=== PATIENT | female | born 1985 | race Hispanic/Latino ===

== ENCOUNTER 2019-11-10 14:27 | Day surgery (SDC) | payer BC ==
[2019-11-10] MEDS ORDERED: Metoclopramide HCl 10 MG/2 ML VIAL ONE (15:19)
[2019-11-10] MEDS ORDERED: Rocuronium Bromide 10 MG/ML (10ML VIAL) ONE (15:19)
[2019-11-10] MEDS ORDERED: Lidocaine 1% PF 5 ML VIAL ONE (15:19)
[2019-11-10] MEDS ORDERED: Glycopyrrolate 0.2 MG/ML 5 ML SYRINGE ONE (15:19)
[2019-11-10] MEDS ORDERED: PROPOFOL 200 MG/20 ML VIAL ONE (15:19)
[2019-11-10] MEDS ORDERED: Ondansetron PF 4 MG/2 ML Vial ONE (15:19)
--- NOTE | 2019-11-10 16:06 | CON ---
DATE OF CONSULTATION: 11/10/2019 CHIEF COMPLAINT: Pill stuck in my esophagus. HISTORY OF PRESENT ILLNESS: Ms. Jaramillo is a 34-year-old woman, who ate breakfast this morning and then around 9:30 this morning, took an Gabrielle-D tablet that lodged in her upper substernal level of her esophagus. She has had sinus congestion for the last week, so she took the pill this morning. She has had intermittent trouble swallowing pills in the past, but has never had a get stuck like this. She has some occasional difficulty with breads and meats. She reports endoscopy was done many years ago for some gastritis. She has had no nausea or vomiting other than currently she is unable to tolerate her secretions and spitting her saliva up into a bag at the bedside because she is unable to swallow. She has had some soreness in her abdominal muscles due to the repeated retching to get the saliva. She has had no diarrhea, constipation, or blood in the stool. No weight changes prior to this. PAST MEDICAL HISTORY: Otherwise negative. PAST SURGICAL HISTORY: x2. She has a 1-year-old and a 4-year-old. FAMILY HISTORY: Negative for GI malignancy. SOCIAL HISTORY: No alcohol, tobacco, or drugs. ALLERGIES: BACTRIM. MEDICATIONS: Prior to admission, none. REVIEW OF SYSTEMS: Negative x10 systems reviewed, except as stated in the history of present illness. PHYSICAL EXAMINATION: GENERAL: She is in no acute distress. Alert and oriented x3. LUNGS: Clear to auscultation bilaterally. HEART: Regular rate and rhythm without murmur. ABDOMEN: Soft, nontender, and nondistended. Bowel sounds are present. EXTREMITIES: No lower extremity edema. IMPRESSION: Esophageal foreign body. She has an Gabrielle D tablets stuck in the upper substernal level. She has had intermittent dysphagia for years, which has been mild previously. She could have an esophageal stricture from reflux or eosinophilic esophagitis versus other source. RECOMMENDATIONS: EGD today to remove the to remove the foreign body. Job ID: [id number]
--- NOTE | 2019-11-10 16:35 | OP ---
DATE OF PROCEDURE: 11/10/2019 PROCEDURES PERFORMED: 1. Esophagogastroduodenoscopy with biopsy. 2. Esophageal foreign body removal. 3. Esophageal balloon dilation. PREOPERATIVE DIAGNOSIS: Esophageal foreign body. DESCRIPTION OF PROCEDURE: Informed consent was obtained from the patient. She was sedated with general anesthesia. The endoscope was advanced easily to the second portion of the duodenum and retroflexion was performed in the stomach. The esophagus had a pill lodged in the mid esophagus at 25 cm. I initially opened a snare to place around, but the pill was still hard and the snare slipped over the top of it. I then used a rat-tooth forceps to grasp the pill and removed it through the patient's mouth. The esophagus was strictured and too tight to pass the endoscope through. There were concentric rings and midesophageal stricture as well as vertical furrows. Biopsies were obtained to evaluate for eosinophilic esophagitis. The esophagus was dilated to 12 mm with a balloon dilator. There were appropriate significant tears, measuring several centimeters in length, associated with balloon dilation. The endoscope could be passed through the esophagus only after dilation was achieved. The GE junction was otherwise unremarkable. There was some retained food in the fundus of the stomach. The stomach mucosa was normal including retroflexed views. The pylorus and first and second portions of the duodenum were normal. IMPRESSION: 1. Esophageal foreign body with a pill stuck at 25 cm, removed with a rat-tooth forceps. 2. Multiple concentric rings and stricture through the esophagus with vertical furrows, consistent with the eosinophilic esophagitis. The esophageal strictures were dilated to 12 mm with a balloon dilator. 3. Otherwise normal esophagogastroduodenoscopy. RECOMMENDATIONS: 1. Await histopathology. 2. Proton pump inhibitor daily. We will start omeprazole over the counter. The capsules could be opened and mixed with applesauce to be taken due to the stricture. 3. Soft foods and kasia each bite with water. 4. Follow up in GI Clinic. If she is confirmed to have the eosinophilic esophagitis, we can treat with swallowed steroid, discuss potential for food allergy testing and potential elimination diets. Job ID: [id number]
== END 2019-11-10 17:03 | disposition home or self-care (01) ==
LOC: ERS 14:27
PROVIDERS: ATTEND Internal Medicine Gastroenterology
PROC: 0D758ZZ Dilation of Esophagus, Via Natural or Artificial Opening Endoscopic (ICD-10-PCS; principal; 2019-11-10)
PROC: 0DB58ZX Excision of Esophagus, Via Natural or Artificial Opening Endoscopic, Diagnostic (ICD-10-PCS; principal; 2019-11-10)
PROC: 0DC28ZZ Extirpation of Matter from Middle Esophagus, Via Natural or Artificial Opening Endoscopic (ICD-10-PCS; principal; 2019-11-10)
DX: K22.2 Esophageal obstruction (principal); T18.198A Other foreign object in esophagus causing other injury, initial encounter; K20.0 Eosinophilic esophagitis; Z79.899 Other long term (current) drug therapy; Z88.2 Allergy status to sulfonamides
CPT/HCPCS: 88305; 88312; 88313; 99284; J2001; J2405; J2704; J2765